=== PATIENT | female | born 1975 | race Caucasian/White ===

== ENCOUNTER 2018-05-14 15:59 | Inpatient (IN) | payer OTHER ==
[~2018-05-14] VITALS: Ht 162.6 cm; Wt 40.4 kg
[2018-05-14 22:30] VITALS: BP 105/84
[2018-05-14 23:00] VITALS: BP 105/84
--- NOTE | 2018-05-14 23:00 | NUR ---
RN OPENING NOTES PT ARRIVED TO UNIT WITH PARAMEDICS VIA GURNEY. PT IN CONFUSED, A/OX1. BILATERAL BLINDNESS. ON ROOM AIR, BREATHING EVEN AND UNLABORED. IN NO ACUTE DISTRESS. NO S/S OF SOB OR PAIN. NO IV ACCESS. COLOSTOMY BAG NOT INTACT AND LEAKING STOOL. PT IS COMBATIVE AND RESISTING CARE, MULTIPLE STAFF TO CLEAN PT. ABLE TO CALM PT DOWN. BED IN LOW/LOCKED POSITION WITH SIDE RAILS UP X3. SITTER AT BEDSIDE. WILL CONTINUE TO MONITOR
--- NOTE | 2018-05-15 00:05 | NUR ---
RN NOTES CALLED [facility] FOR PT'S H&P AND MED LIST. WILL FAX
--- NOTE | 2018-05-15 00:13 | NUR ---
RN NOTES AWAITING FOR ADMITTING ORDERS. MD RONEN MULLIGAN.
[2018-05-15] MEDS ORDERED: IV NS 0.9% 1,000 ML IV PRN (00:31)
--- NOTE | 2018-05-15 00:45 | NUR ---
RN NOTES FOLLOWED UP WITH [facility] REGARDING PAPERWORK. FAX UNABLE TO SEND. BOTH FAX NUMBERS VERIFIED. THEY WILL TRY TO SEND AGAIN.
[2018-05-15] MEDS ORDERED: MAGNESIUM HYDROXIDE 30 ML UDC PO PRN (01:00)
[2018-05-15] MEDS ORDERED: MAG HYDROX/AL HYDROX/SIMETH 30 ML UDC PO PRN (01:00)
[2018-05-15] MEDS ORDERED: Z GUARD REMEDY 2 OZ OINT TP PRN (01:00)
[2018-05-15] MEDS ORDERED: ONDANSETRON HCL/PF 4 MG/2 ML VIAL IVP PRN (01:00)
[2018-05-15] MEDS ORDERED: ACETAMINOPHEN 325 MG TABLET PO PRN (01:00)
[2018-05-15] MEDS ORDERED: ZOLPIDEM TARTRATE 5 MG TABLET PO PRN (01:00)
[2018-05-15] MEDS ORDERED: MORPHINE SULFATE INJ 2 MG/ML DISP.SYRIN IV PRN (01:00)
--- NOTE | 2018-05-15 01:05 | NUR ---
RN NOTES IV INSERTED TO LEFT HAND #22. FLUSHES WELL. IVF INITIATED ORDERED. COVERED WITH SLEEVE
[2018-05-15 02:10] LABS: BASOPHILS % (AUTO) 0.4 % (0.0-2.0); EOSINOPHILS % (AUTO) 3.2 % (0.0-6.0); HEMATOCRIT 38 % (33-45); HEMOGLOBIN 12.8 g/dL (11.5-14.8); LYMPHOCYTES # (AUTO) 2.6 /CMM (0.8-4.8); LYMPHOCYTES % (AUTO) 38.6 % (20.0-44.0); MEAN CORPUSCULAR HGB CONC 34 g/dl (31.0-36.0); MEAN CORPUSCULAR VOLUME 92 fL (82-100); MONOCYTES # (AUTO) 0.8 /CMM (0.1-1.30); MONOCYTES % (AUTO) 12.2 % (2.0-12.0); NEUTROPHILS % (AUTO) 45.6 % (43.0-81.0); PLATELET COUNT (AUTO) 340 /CMM (150-450); RED BLOOD CELL COUNT(AUTO) 4.15 MIL/uL (4.0-5.2); WHITE BLOOD COUNT (AUTO) 6.6 K/uL (4.3-11.0)
[2018-05-15 02:24] LABS: ALBUMIN 3.3 g/dL (3.4-5.0); BILIRUBIN,TOTAL 0.4 mg/dL (0.2-1.0); CALCIUM, SERUM 9.9 mg/dL (8.5-10.1); CREATININE 0.6 mg/dL (0.6-1.3); MAGNESIUM 1.8 mg/dL (1.8-2.4); PHOSPHORUS 3.9 mg/dL (2.5-4.9); POTASSIUM 4.2 mmol/L (3.5-5.1)
[2018-05-15 02:33] LABS: THYROID STIMULATING HORMONE 1.935 uIU/mL (0.358-3.74)
--- NOTE | 2018-05-15 03:53 | NUR ---
RN NOTES CALLED PA FOR UPDATES REGARDING FAX. STAFF SAID THE FAX MACHINE WAS GIVE A BUSY TONE AND UNABLE TO SEND. ASKED IF SHE COULD GIVE ME THE PT'S MEDICAL HX AND MED LIST OVER THE PHONE BUT SHE SAID "ITS ALOT. ILL TRY TO FAX AGAIN".
--- NOTE | 2018-05-15 06:52 | NUR ---
MS/RN CLOSING NOTES PT RESTING COMFORTABLY IN BED. SITTER AT BEDSIDE. A/OX1. COMBATIVE AND RESISTING CARE AT TIMES. REORIENTATION PROVIDED PRN. REMAINS ON ROOM AIR, BREATHING EVEN AND UNLABORED. NO S/S OF ACUTE DISTRESS, PAIN OR SOB. IV TO LEFT HAND REMAINS PATENT AND INTACT RUNNING IVF ORDERED. ABLE TO MOVE INDEPENDENTLY IN BED, ASSIST WITH TURNING. KEPT CLEAN AND DRY. COLOSTOMY IN PLACE. BED IN LOW/LOCKED POSITION, SIDE RAILS UP X3 WITH BED ALARM ON. HOB ELEVATED. CALL LIGHT NOT IN REACH DUE TO DTS/DTO. UNABLE TO OBTAIN MEDICAL RECORDS FROM [facility]. WILL ENDORSE TO DAY SHIFT RN.
[2018-05-15] MEDS: LORAZEPAM INJ 2 MG/ML VIAL IV PRN (07:58)
--- NOTE | 2018-05-15 07:59 | NUR ---
MS RN OPENING NOTES [facility]. PT IS A/O X1. NO SOB OR ACUTE SIGNS OF DISTRESS NOTED AT THIS TIME. PT ON RA AND SATING WELL. PER [facility] RN, PT HAS BEEN COMBATIVE WITH MEDICAL STAFF AND NOTED REMOVING HER COLOSTOMY BAG ON NUMEROUS OCCASIONS. PT CALM AT THIS TIME. IV TO LEFT HAND NOTED TO BE PATENT AND INTACT. NO REDNESS OR SIGNS OF INFILTRATION NOTED. 1:1 SITTER AT BEDSIDE. BED ALARM ON FOR FURTHER SAFETY. BED IN LOW LOCKED POSITION, SIDE RAILS UP X2. WILL CONTINUE TO MONITOR
[2018-05-15 08:00] VITALS: BP 120/69
--- NOTE | 2018-05-15 08:17 | NUR ---
RN NOTES PT VERY COMBATIVE AND AGITATED. HITTING STAFF AND HITTING SIDE RAILS. ATTEMPTING TO BITE STAFF. YELLING AND PULLED OFF COLOSTOMY. COLOSTOMY BAG REPLACED. PRN ATIVAN GIVEN ORDERED.
--- NOTE | 2018-05-15 08:19 | NUR ---
MS RN NOTES: MED RECON PER [facility] RN , PT'S FACILITY WAS UNABLE TO FAX HER MEDICATION RECONCILIATION. MED RECON NURSE NOTIFIED AND STATES THAT HE WILL CONTINUE TO CONTACT PT AND OBTAIN RECORDS
--- NOTE | 2018-05-15 11:10 | NUR ---
MS RN NOTES: RESTRAINT ORDER PT REMOVED COLOSTOMY BAG AND BECAME VERY COMBATIVE WHEN CLEANING. PT NOTED TO BITE OCCUPATIONAL PSYCHOLOGIST ON THE FINGER DURING CARE. OCCUPATIONAL PSYCHOLOGIST SENT TO ER. NEWSPAPER JOURNALIST ADRIENNE ON UNIT MADE AWARE AND GIVEN VERBAL ORDER FOR RESTRAINTS AND CONTINUATION OF 1:1 SITTER. CHARGE NURSE MADE AWARE
--- NOTE | 2018-05-15 12:19 | NUR ---
MS RN NOTES: MED REC F/U CALLED RECEIVED BY MED RECON NURSE. THREE ATTEMPTS MADE TO CONTACT PT'S FACILITY FOR RECORDS TO NO AVAIL.
[2018-05-15] MEDS ORDERED: ENOX40DI SQ (14:54)
[2018-05-15] MEDS ORDERED: LORA-259 PO (14:54)
[2018-05-15] MEDS ORDERED: VALP250S4 PO (14:54)
[2018-05-15] MEDS ORDERED: CLON1TAB PO (14:54)
[2018-05-15] MEDS ORDERED: FERR325T23 PO (14:54)
[2018-05-15] MEDS ORDERED: ACET-868 PO (14:54)
[2018-05-15] MEDS ORDERED: LOPE2CAP PO (14:54)
[2018-05-15] MEDS ORDERED: QUET200T PO (14:54)
[2018-05-15] MEDS ORDERED: MULT-447 PO (14:54)
[2018-05-15] MEDS ORDERED: GLYC2TAB21 PO (14:54)
[2018-05-15] MEDS ORDERED: ASCO500T9 PO (14:54)
[2018-05-15 16:00] VITALS: BP_SYST 107; BP_SYST 120; BP_DIAS 58; BP_DIAS 69
[2018-05-15] MEDS: QUETIAPINE FUMARATE 25 MG TABLET PO SCH ×2 (17:42→21:37)
[2018-05-15] MEDS: clonazePAM 0.5 MG TABLET PO PRN (17:50)
--- NOTE | 2018-05-15 18:53 | NUR ---
MS RN CLOSING NOTES PT VIVIANE AND RESTING IN BED AT THIS TIME. ALL NEEDS ANTICIPATED AND MET DURING SHIFT PT WOULD ADMIT. ORDERS CARRIED OUT ACCORDINGLY. ALL DUE MEDS GIVEN. PRN CARE RENDERED PT WOULD PERMIT. IV REMAINS PATENT AND INTACT. FLUIDS HELD AT THIS TIME PT IS REFUSING. BILATERAL SOFT WRIST RESTRAINTS REMAIN. ADEQUATE CIRCULATION AND STRONG PULSES NOTED TO EXTREMITIES. SAFETY MEASURES REMAIN IN PLACE. 1:1 SITTER AT BEDSIDE.WILL ENDORSE TO NIGHT[facility] RN FOR MARYANA
--- NOTE | 2018-05-15 19:30 | NUR ---
MS/RN OPENING NOTES PT RECEIVED AWAKE IN BED. ON ROOM AIR, BREATHING EVEN AND UNLABORED. NO S/S OF SOB, PAIN OR DISTRESS AT THIS TIME. IV TO LEFT HAND INTACT. FLUIDS ON HOLD AT THIS TIME. SITTER AT BEDSIDE AND BILATERAL SOFT WRIST RESTRAINTS IN PLACE PER MD DUE TO PT BEING UNMANAGEABLE. PT OCCASIONALLY THROWING LEGS IN THE AIR. SIDE RAILS PADDED. BED IN LOW/LOCKED POSITION WITH CALL LIGHT IN REACH. CALL LIGHT NOT WITHIN REACH FOR SAFETY. WILL CONTINUE TO MONITOR
--- NOTE | 2018-05-15 21:40 | NUR ---
MS/RN NOTES PT FEARFUL AND THROWING LEGS IN THE AIR ATTEMPTING TO HIT STAFF. USES LEGS TO HIT SIDE RAILS. ABLE TO DISTRACT PT AND CALM HER DOWN VERBALLY. PM MED GIVEN WITH CHOCOLATE PUDDING SUCCESSFULLY. ABLE TO ASSESS PT AND EMPTY COLOSTOMY BAG. PT CALM AT THIS TIME. BILATERAL SOFT WRIST RESTRAINTS REMAIN IN PLACE, GOOD CIRCULATION NOTED. WILL CONTINUE TO MONITOR
--- NOTE | 2018-05-16 00:30 | NUR ---
MS/RN NOTES REPORT GIVEN TO NURSE STEWART FOR CONTINUITY OF CARE. PT IS QUIET AT THIS TIME
--- NOTE | 2018-05-16 00:35 | NUR ---
RN OPENING NOTES: PT RECEIVED ASLEEP IN BED, ARAUSABLE TO VERBAL AND TACTILE STIMULI, NO SOB, NO ACUTE DISTRESS, BREATHING EVEN AND UNLABORED, NO S/S OF PAIN AND DISCOMFORT. IV TO LEFT HAND INTACT. SITTER AT BEDSIDE AND BILATERAL SOFT WRIST RESTRAINTS IN PLACE PER MD DUE TO PT BEING UNMANAGEABLE. NO COMPLICATION NOTED AT THIS TIME. SIDE RAILS PADDED. BED IN LOW AND LOCKED POSITION. ALL NEEDS ATTENDED AND MET. WILL CONTINUE TO MONITOR
--- NOTE | 2018-05-16 07:23 | NUR ---
PATIENT STABLE, COLOSTOMY BAG CHANGED, PATIENT TOLERATED THE PROCEDURE, NO SOB, NO ACUTE DISTRESS, BREATHING EVEN AND UNLABORED, NO S/S OF PAIN AND DISCOMFORT, ENDORSED TO THE NEXT SHIFT
[2018-05-16 07:38] LABS: BASOPHILS % (AUTO) 0.4 % (0.0-2.0); EOSINOPHILS % (AUTO) 0.8 % (0.0-6.0); HEMATOCRIT 39 % (33-45); HEMOGLOBIN 12.8 g/dL (11.5-14.8); LYMPHOCYTES % (AUTO) 38.1 % (20.0-44.0); MEAN CORPUSCULAR HGB CONC 33 g/dl (31.0-36.0); MEAN CORPUSCULAR VOLUME 92 fL (82-100); MONOCYTES # (AUTO) 0.7 /CMM (0.1-1.30); MONOCYTES % (AUTO) 13.4 % (2.0-12.0); NEUTROPHILS # (AUTO) 2.5 /CMM (1.8-8.9); NEUTROPHILS % (AUTO) 47.3 % (43.0-81.0); PLATELET COUNT (AUTO) 457 /CMM (150-450); RED BLOOD CELL COUNT(AUTO) 4.22 MIL/uL (4.0-5.2); WHITE BLOOD COUNT (AUTO) 5.3 K/uL (4.3-11.0)
[2018-05-16 07:49] LABS: ALBUMIN 3.5 g/dL (3.4-5.0); CREATININE 0.6 mg/dL (0.6-1.3); MAGNESIUM 1.9 mg/dL (1.8-2.4)
--- NOTE | 2018-05-16 08:00 | NUR ---
RN NOTES RECEIVED PATIENT IN THE BED ON WITH SOFT RESTRAIN ON. PATIENT CONFUSED, IRRITABLE, HARD TO FOLLOW DIRECTION, PARANOID . PATIENT BLIND BOTH EYES, SPEECH UNCLEAR. PATIENT KICKING, HITTING , TRYING GET OUT OF BED. REFUSED SCHEDULED MEDICATION. 1;1 SITTER NEXT TO THE BED FOR SAFETY. PATIENT INCONTINENT OF BLADDER ON DIAPER, ALSO HAS A COLOSTOMY BAG INTACT. PATIENT TURN AND REPOSTION SELF. 1:1 SITTER NEXT TO THE BED FOR SAFETY. CALL LIGHT WITHIN TO REACH. SAFETY PRECAUTION MAINTAINED ALL THE TIME.
[2018-05-16 09:00] VITALS: BP 117/70
[2018-05-16] MEDS: QUETIAPINE FUMARATE 25 MG TABLET PO SCH ×4 (09:00→21:41)
[2018-05-16] MEDS: LORAZEPAM INJ 2 MG/ML VIAL IV PRN ×2 (09:37→15:39)
--- NOTE | 2018-05-16 09:37 | NUR ---
RN NOTES ADMINISTER ATIVAN 0.5 MG/ML IV PUSH FOR KICKING, HITTING, PARANOIA. PATIENT REFUSED SCHEDULED MEDICATION, REFUSED EAT. V/S TAKEN BP 117/70, P-108, GET HELP FROM ABSORBER OPERATOR HOLD DOWN PATIENT FOR INJECTION, PATIENT ON SOFT RESTRAIN, CHECKED CIRCULATION Q 2 HR. 1;1 SITTER FOR SAFETY. CONTINUED MONITORING.
--- NOTE | 2018-05-16 12:00 | NUR ---
RN NOTES CHANGED COLOSTOMY BAG, MEDICATION WERE ADMINISTERED FOR ANXIETY EFFECTIVE, PATIENT SLEEPING AT THIS TIME. 1:1 SITTER NEXT TO THE BED FOR SAFETY. CONTINUED MONITORING. CHECHED CIRCULATION ON SOFT RESTRAIN Q 2 HR. ASSIST TURN AND REPOSTION Q 2 HR. CONTINUED MONITORING.
[2018-05-16] MEDS: LORAZEPAM INJ 2 MG/ML VIAL IM PRN (16:50)
--- NOTE | 2018-05-16 16:50 | NUR ---
rn notes administered Ativan 0.5 mg/ml im right outer gluteal area for paranoia, yelling, kicking, combative, anxiety. called help three of rn's for help to hold. continued monitoring.
--- NOTE | 2018-05-16 18:30 | NUR ---
RN NOTES PATIENT STABLE AT THIS TIME AFTER MEDICATION, SCHEDULED MEDICATION ADMINISTERED, V/S STABLE. PATIENT GET IRRITABLE EASILY, SOFT RESTRAIN ON, UNPREDICTABLE, KEEP REMOVING, DIAPER, AND COLOSTOMY BAG. NEEDS ATTENDED AND ANTICIPATED, 1;1 SITTER NEXT TO THE BED. PATIENT BITING IV TUBING, UNABLE TO GIVE IV FLUIDS. CALL LIGHT WITHIN TO REACH. SAFETY PRECAUTION MAINTAINED ALL THE TIME. ENDORSED ONCOMING NURSE FOR PLAN OF CARE.
--- NOTE | 2018-05-16 20:00 | NUR ---
RN NOTES RECEIVED PATIENT IN THE BED ON WITH SOFT RESTRAIN ON. PATIENT CONFUSED, YELLING SCRAMING IRRITABLE, HARD TO FOLLOW DIRECTION, PARANOID . PATIENT KICKING, HITTING , TRYING GET OUT OF BED 1;1 SITTER NEXT TO THE BED FOR SAFETY. PATIENT INCONTINENT OF BLADDER ON DIAPER, ALSO HAS A COLOSTOMY BAG, PATIENT TURN AND REPOSITION SELF. 1:1 SITTER NEXT TO THE BED FOR SAFETY. CALL LIGHT WITHIN TO REACH. SAFETY PRECAUTION MAINTAINED ALL THE TIME.
--- NOTE | 2018-05-16 20:10 | NUR ---
RN NOTES: PT HAS MULTIPLE DISCOLORATIONS BRUISES ON HER ALL BODY NOTED , BUT PT. REFUSING TO SKIN REASSESS , PT IS SCRAMING YELLING, COMBATIVE , AGRESSIVE, HITTING KICKING STAFF BANGING ON SIDE RAILS NOT FOLLOWING ANY REDIRECTIONS
--- NOTE | 2018-05-16 20:50 | NUR ---
RN NOTES CALLED DR. HARDWICK FOR PT. BEHAVIOR YELLING, SCRAMING, BITING, KICKING ,BANGING HEAD WITH SIDE RAILS ,PULLED OUT COLOSTOMY BAG, AND PULLED OUT IV TUBING TRYING TO GETTING OUT OF THE BED, NEW ORDERS RECEVIED ATIVAN 1 MG IVP X ONCE, ADMINISTER ATIVAN 1 MG/ML IV PUSH FOR KICKING, YELLING SCREAMING HITTING, PARANOIA , GET HELP FROM STAFF, PATIENT ON BILATERAL SOFT RESTRAIN, CHECKED CIRCULATION Q 2 HR. 1:1 SITTER FOR SAFETY. CONTINUED MONITORING.
[2018-05-16] MEDS ORDERED: LORAZEPAM INJ 2 MG/ML VIAL IVP ONE (21:00)
[2018-05-16 23:19] VITALS: BP 130/80
--- NOTE | 2018-05-17 02:04 | NUR ---
RN NOTES: PATIENT REFUSED SKIN ASSESSMENT AND PICTURES TAKEN .PT. BEHAVIOR IS VERY UNCOOPERTIVE KICKING BITING HITTING ,SCATTING TO STAFF ENCOURAGED X3 EXPLAINED RISKS AND BENEFITS ,STILL REFUSED AND UNABLE TO DO SKIN ASSESSMENT AND PICTURES , WILL CONTINUE TO MONITOR.
--- NOTE | 2018-05-17 06:34 | NUR ---
RN NOTES PATIENT RESTING AT THIS TIME IN STABLE CONDTION, SCHEDULED MEDICATION ADMINISTERED, V/S STABLE. PATIENT GET IRRITABLE EASILY, SOFT RESTRAIN ON BILATERAL, UNPREDICTABLE, KEEP REMOVING, DIAPER, AND COLOSTOMY BAG. NEEDS ATTENDED AND ANTICIPATED, 1;1 SITTER FOR PT. SAFETY. INSERT IV RIGHT HAND WITH #22 BUT PATIENT BITING IV TUBING AND PULLED OUT THE IV, UNABLE TO GIVE IV FLUIDS. CALL LIGHT WITHIN TO REACH. SAFETY PRECAUTION MAINTAINED ALL THE TIME. ENDORSED ONCOMING NURSE FOR PLAN OF CARE.
--- NOTE | 2018-05-17 07:00 | NUR ---
PT WAS SCREAMING,KICKING AND BITING STAFF AT THE BEGINNING OF THE SHIFT.PT KEEPS BANGING HER LEGS/ARMS IN THE SIDERAILS (SELF INFLICTED)INSPITE OF HAVING BILATERAL WRIST RESTRAINTS ON.PT OBTAINED SKIN TEAR ON THE RIGHT ARM AND TRIED TO DO THE WOUND TX BUT PT IS SO UNCOOPERATIVE,KICKING AND BITING STAFF-UNABLE TO DO WOUND TX.PT HAS MULTIPLE BRUISES ON BUE/BLE.WITH 1:1 SITTER AT BEDSIDE.WILL CONTINUE TO MONITOR.
[2018-05-17] MEDS: LORAZEPAM INJ 2 MG/ML VIAL IM PRN ×2 (07:52→15:32)
--- NOTE | 2018-05-17 08:00 | NUR ---
MS RN AM NOTES PATIENT AWAKE,CONFUSED,AGITATED,SCREAMING AND COMBATIVE AND KICKING STAFF INSPITE OF CALM APPROACH.SCHEDULED MEDICATION ADMINISTERED BUT PT REFUSED, V/S STABLE. PATIENT GET IRRITABLE EASILY, WITH BILATERAL SOFT WRIST RESTRAINTS, KEEP REMOVING DIAPER AND PULLING OUT HER IV HEPLOCK AND COLOSTOMY BAG. NEEDS ATTENDED BUT PT IS UNCOOPERATIVE. 1;1 SITTER FOR PT. SAFETY. ATTEMPTED INSERTING IV H/L BUT PT IS KICKING STAFF AND IS UNCOOPERATIVE, BITES,SCREAMS AND KICKS-UNABLE TO INSERT IV AND ADMINISTER FLUIDS.ATTEMPTED TO FEED PT BUT PT IS UNCOOPERATIVE AND SPITS,KICKS AND BITES FEEDER-NOTIFIED ADRIENNE PIERCE NP AND MADE AWARE.UNABLE TO DO BODY CHECK AND TAKE PHOTOS DUE TO PT'S SEVERE AGITATION,KICKING AND BITING STAFF INSPITE OF CALM APPROACH.ATIVAN 0.5 MG IM GIVEN.CALL LIGHT WITHIN REACH. SAFETY PRECAUTION MAINTAINED ALL THE TIME.WITH 1:1 SITTER AT BEDSIDE.
[2018-05-17] MEDS: QUETIAPINE FUMARATE 25 MG TABLET PO SCH ×4 (08:03→20:06)
[2018-05-17] MEDS ORDERED: LOPERAMIDE HCL (2 MG CAP) 2 MG CAPSULE PO PRN (10:00)
--- NOTE | 2018-05-17 10:00 | NUR ---
CHANGED PT'S COLOSTOMY BAG WITH LARGE AMOUNT OF YELLOW,MUSHY FECES.PT'S COLOSTOMY SITE AND SURROUNDING AREA IS SO RED.PT PULLED HER COLOSTOMY BAG AND IV H/L SEVERAL TIMES.PT UNCOOPERATIVE KICKING, BITING STAFF,DOING HEAD BUTT TO THE STAFF AND THE SIDERAILS,BILATERAL SIDERAILS PADDED FOR SAFETY,STRETCHES HER BLE,REPEATEDLY AND CONTINUALLY HITS THE PADDED SIDERAILS OR STAFF WITH HER BLE AND SCREAMS INCOHERENT SOUNDS.NO BLE SWELLING OR OPEN WOUND NOTED.WITH BLE/BUE BRUISES AND LFA WOUND.UNABLE TO DO WOUND TX SINCE PT IS SO AGITATED,KICKING,BITING AND DOING HEAD BUTT TO THE STAFF.VERY UNCOOPERATIVE EVEN WITH CALM APPROACH.PLACED PILLOWS ON THE SIDE OF THE PADDED SIDERAILS.
[2018-05-17 10:58] LABS: PREALBUMIN 22.7 MG/DL (18.0-35.7)
[2018-05-17 11:12] LABS: VALPROIC ACID < 3 ug/mL (50-100)
[2018-05-17] MEDS: VALPROIC ACID 250 MG/5 ML UDC PO SCH ×2 (12:07→20:06)
[2018-05-17] MEDS: MULTIVITAMINS,THERAGRAN 1 UDTAB TABLET PO SCH (12:07)
[2018-05-17] MEDS: VITAMINS A AND D 56.7 GM TUBE TP SCH (12:09)
[2018-05-17] MEDS: SILVER SULFADIAZINE CREAM 25 GM TUBE TP SCH (12:09)
[2018-05-17] MEDS: clonazePAM 0.5 MG TABLET PO PRN ×2 (12:10→18:38)
[2018-05-17] MEDS: HYDROCODONE/APAP 5/325MG 1 EACH TABLET PO PRN ×2 (12:12→16:30)
[2018-05-17] MEDS ORDERED: QUETIAPINE FUMARATE 100 MG TABLET PO SCH ×2 (13:00)
[2018-05-17 13:48] LABS: APPEARANCE,URINE SL CLOUDY (CLEAR); BILIRUBIN,URINE NEGATIVE (NEGATIVE); BLOOD, URINE 3+ Ery/uL (NEGATIVE); KETONES,URINE TRACE (NEGATIVE); LEUKOCYTE ESTERASE ,URINE NEGATIVE (NEGATIVE); NITRITE, URINE NEGATIVE (NEGATIVE); PH,URINE 6.5 (5.0-8.0); PROTEIN,URINE 2+ mg/dl (NEGATIVE); UGLUCOSE NEGATIVE (NEGATIVE); UROBILINOGEN,URINE 0.2 EU/dL (0.2)
--- NOTE | 2018-05-17 14:00 | NUR ---
m/s school child care attendant: notes colostomy care rendered for 2nd time. pt remains combative during care m/b kicking, hitting, biting, scratching, pinching, and head butting despite with 3-4 staff assisting. pt keeps kicking the side rails with her legs and feet despite siderails are padded. pt remains confused and disoriented to time, place, and situation. sitter remains at bedside. reality orientation provided prn. awaiting for ambulance. will continue to monitor.
--- NOTE | 2018-05-17 14:08 | NUR ---
Social service consult requested by Claudia Leblanc MD for mental health concerns. Pt is a 42 year old female admitted to [facility] as a direct admission from [facility] due to worsening encephalopathy and aggressive behavior among the SNF ([facility]) per pts discharge sarabjit. Per discharge note pt is developmentally delayed, blind and has a history of respiratory failure. [facility] however pt did not meet 5150 hold criteria. Social work spoke with charge nurse Arely who reported that psychiatric doctor have been in to see pt and no hold was ordered. Per charge nurse, Dr De Anda is to discharge patient back to [facility].
[2018-05-17 14:17] LABS: COLOR,URINE DARK YELLOW (YELLOW)
[2018-05-17 14:28] LABS: BACTERIA,URINE None seen /HPF (None Seen); RBC,URINE 81-100 /HPF (0-2); SQUAMOUS EPITHELIAL CELL,UR Few /HPF (None Seen)
--- NOTE | 2018-05-17 15:00 | NUR ---
CHANGED PT'S COLOSTOMY BAG WITH LARGE AMOUNT OF YELLOW,MUSHY FECES.PT'S COLOSTOMY SITE AND SURROUNDING AREA IS SO RED.PT PULLED HER COLOSTOMY BAG AND IV H/L SEVERAL TIMES.PT UNCOOPERATIVE KICKING, BITING STAFF,DOING HEAD BUTT TO THE STAFF AND THE SIDERAILS,BILATERAL SIDERAILS PADDED FOR SAFETY,STRETCHES HER BLE,REPEATEDLY AND CONTINUALLY HITS THE PADDED SIDERAILS OR STAFF WITH HER BLE AND SCREAMS INCOHERENT SOUNDS.NO BLE SWELLING OR OPEN WOUND NOTED.WITH BLE/BUE BRUISES AND LFA WOUND.UNABLE TO DO WOUND TX SINCE PT IS SO AGITATED,KICKING,BITING AND DOING HEAD BUTT TO THE STAFF.VERY UNCOOPERATIVE EVEN WITH CALM APPROACH.PLACED PILLOWS ON THE SIDE OF THE PADDED SIDERAILS.REMOVED BENJAMIN CATHETER WITH 200 ML YELLOW URINE.PT TOLERATED WELL.
[2018-05-17] MEDS: FERROUS SULFATE (325 MG) 325 MG/TAB TABLET PO SCH (16:10)
[2018-05-17] MEDS ORDERED: ASCORBIC ACID 500 MG TABLET PO SCH (17:00)
[2018-05-17 18:00] VITALS: BP 139/98
--- NOTE | 2018-05-17 19:26 | NUR ---
MS RN CLOSING NOTES PATIENT REMAINS AWAKE AND CALM IN BED. COLOSTOMY BAG INTACT. ALL DUE MEDS GIVEN ORDERED AND TOLERATED WELL. NO FACIAL GRIMACING OR GROANING TO INDICATE PAIN OR DISCOMFORT. DISCHARGE TO NURSING FACILITY PENDING PER HEART RATE WNL. ENDORSED TO ONCOMING SHIFT.
[2018-05-17 20:00] VITALS: BP_SYST 123; BP_SYST 125; BP_DIAS 75
--- NOTE | 2018-05-17 20:00 | NUR ---
MS/RN RECEIVE PATIENT AWAKE, ALERT, ORIENTED TO PERSON, NO C/O PAIN, NO DISTRESS NOTED, MORE CALM AND COMFORTABLE, NO DISTRESS NOTED. PATIENT IS TO D/C TO [facility] TODAY HOWEVER AMBULANCE REFUSED TO TAKE HER DUE TO HR 125 PER DAY RN REPORT. DUE MED, KLONOPIN, SEROQUEL AND VALPROIC ACID WERE GIVEN. WILL MONITOR HR AND WILL CALL AMBULANCE FOR COACH PROFESSIONAL ATHLETES IF HR NORMALIZES.
[2018-05-17] MEDS: clonazePAM 1 MG TABLET PO SCH (20:06)
[2018-05-17 20:51] VITALS: BP 125/75
[2018-05-17] MEDS ORDERED: LORAZEPAM INJ 2 MG/ML VIAL IM/IV ONE (21:00)
--- NOTE | 2018-05-17 21:45 | NUR ---
MS/RN PATIENT APPEAR SLEEPING, CALM AND COMFORTABLE, NO DISTRESS NOTED, BUT HR 129-131, NOTIFIED DR. HARDWICK OF THE PATIENT'S CURRENT CLINICAL CONDITION AND RECEIVED AN ORDER TO HOLD THE DISCHARGE.
--- NOTE | 2018-05-17 22:02 | NUR ---
MS/RN PATIENT IS AWAKE AT THIS TIME, VERY AGITATED, YELLING AND KICKING, ATIVAN 1 MG IM WAS GIVEN ORDERED. WILL CONTINUE TO MONITOR.
--- NOTE | 2018-05-17 22:40 | NUR ---
MS/RN PATIENT APPEAR SLEEPING AT THIS TIME, CALM AND APPEAR COMFORTABLE, NO SIGNS OF DISTRESS NOTED, WILL CONTINUE TO MONITOR.
--- NOTE | 2018-05-18 06:52 | NUR ---
MS/RN PATIENT STILL SLEEPING AT THIS TIME, APPEAR COMFORTABLE, CALM NO DISTRESS NOTED, FF=096, ALL NEEDS ATTENDED AT THIS TIME. ENDORSED NO NEXT RN FOR CONTINUITY OF CARE.
[2018-05-18] MEDS: LORAZEPAM INJ 2 MG/ML VIAL IM PRN (07:26)
--- NOTE | 2018-05-18 07:47 | NUR ---
RN OPENING NOTES RECEIVED PATIENT IN BED AWAKE, SCREAMING,YELLING, AND KICKING. ALSO KEEPS BANGING HER LEGS/ARMS IN THE SIDERAILS (SELF INFLICTED)INSPITE OF HAVING BILATERAL WRIST RESTRAINTS ON. UNCOOPERATIVE. HAS MULTIPLE BRUISES ON BUE/BLE.WITH 1:1 SITTER AT BEDSIDE. ADMINISTER ATIVAN 0.5 IM ORDERED. NO IV ACCESS NOTED. COLOSTOMY INTACT. WILL CONTINUE TO MONITOR ACCORDINGLY.
[2018-05-18] MEDS: FERROUS SULFATE (325 MG) 325 MG/TAB TABLET PO SCH (08:34)
[2018-05-18] MEDS: QUETIAPINE FUMARATE 25 MG TABLET PO SCH (08:34)
[2018-05-18] MEDS: clonazePAM 1 MG TABLET PO SCH (08:34)
[2018-05-18] MEDS: MULTIVITAMINS,THERAGRAN 1 UDTAB TABLET PO SCH (08:34)
[2018-05-18] MEDS: VALPROIC ACID 250 MG/5 ML UDC PO SCH (08:39)
[2018-05-18] MEDS: SILVER SULFADIAZINE CREAM 25 GM TUBE TP SCH (08:43)
[2018-05-18] MEDS: VITAMINS A AND D 56.7 GM TUBE TP SCH (08:44)
[2018-05-18] MEDS ORDERED: ENOXAPARIN SODIUM 40 MG/0.4 ML DISP.SYRIN SQ SCH (09:00)
--- NOTE | 2018-05-18 09:00 | NUR ---
PATIENT IS CALM, ATE 100% BREAKFAST. WILL MONITOR ACCORDINGLY.
[2018-05-18 10:30] VITALS: BP 109/55
--- NOTE | 2018-05-18 10:30 | NUR ---
RN NOTES UNABLE TO TAKE PICTURES, NOT COOPERATIVE, AND WONT HOLD STILL. A LITTLE AGITATED AND KEEPS MOVING AND KICKING.
--- NOTE | 2018-05-18 10:45 | NUR ---
DISCHARGED PATIENT IN STABLE CONDITION PICKED UP BY AMBULANCE. DISCHARGE PAPERWORK GIVEN TO AMBULANCE CREW. CALL REPORT TO LUCITA TOWNSEND AT [facility]. DISCHARGE INSTRUCTIONS WAS GIVEN, VERBALIZED UNDERSTANDING. ALL BELONGINGS RETURNED. NAME BAND REMOVE.
--- NOTE | 2018-05-18 13:48 | NUR ---
PATIENT WAS SENT BACK TO THE UNIT BY SAME AMBULANCE CREW. SPOKE WITH LUCITA TOWNSEND FROM [facility].. PER KRISTIAN, SENT PATIENT BACK TO HOSPITAL BECAUSE PATIENT BP 90/60 AND PATIENT WAS "NOT RESPONSIVE". ASSESSED PATIENT BY PRIMARY RN AND ADIRENNE PIERCE NP. PATIENT WAS RESPONSIVE, AWAKE, AND VSS. MO=[id number]/62. SEND THE PATIENT BACK TO SNF PER ADRIENNE PIERCE NP. CALLED LUCITA TOWNSEND AND GAVE REPORT. PER TAMMY TOWNSEND TO RETURN THE PATIENT.
--- NOTE | 2018-05-18 14:15 | NUR ---
PATIENT TRANSPORTED BACK TO SNF
== END 2018-05-18 14:30 | DRG 422 ==
LOC: TELE 22:15 → MED 22:27
PROVIDERS: ADMIT Nurse Practitioner Acute Care; ATTEND Nurse Practitioner Acute Care
DX: E86.0 Dehydration (principal); G93.41 Metabolic encephalopathy; E43 Unspecified severe protein-calorie malnutrition; R64 Cachexia; R53.2 Functional quadriplegia; Z68.1 Body mass index [BMI] 19.9 or less, adult; F29 Unspecified psychosis not due to a substance or known physiological condition; S80.212A Abrasion, left knee, initial encounter; S40.812A Abrasion of left upper arm, initial encounter; S40.811A Abrasion of right upper arm, initial encounter; L98.9 Disorder of the skin and subcutaneous tissue, unspecified; H54.7 Unspecified visual loss; F79 Unspecified intellectual disabilities; Z74.01 Bed confinement status; Z93.3 Colostomy status; R21 Rash and other nonspecific skin eruption
CPT/HCPCS: 36415; 71045-TC; 80048-TC; 80053-TC; 80164-TC; 81000-TC; 82040-TC; 83735-TC; 84100-TC; 84134-TC; 84443-TC; 84702-TC; 85025-TC; 86706; 87081-TC; 87086-TC; 87340; 87522; 87806; A4606; G0378; J1650; J2060; J7030; Z7610